=== PATIENT | female | born 1940 | race Caucasian/White ===

== ENCOUNTER 2017-12-19 14:07 | Emergency (ER) | payer MEDICARE, SELFPAY ==
[2017-12-19 14:08] VITALS: BP 129/58; PULSE 65; RESP 13; TEMP 36.6; O2SAT 94; BMI 35.1
--- NOTE | 2017-12-19 14:17 | EKG12_ITS ---
Test Reason : CP Blood Pressure : / mmHG Vent. Rate : 065 BPM Atrial Rate : 065 BPM P-R Int : 210 ms QRS Dur : 148 ms QT Int : 482 ms P-R-T Axes : 040 -44 100 degrees QTc Int : 501 ms Sinus rhythm with 1st degree A-V block Left axis deviation Left bundle branch block Abnormal ECG Confirmed by LATA TANG, JULIENNE ([id number]), senior editor EDITH CALVERT ([id number]) on 12/24/2017 2:23:09 PM Referred By: INDER Confirmed By:JULIENNE GUIDO MD
--- NOTE | 2017-12-19 14:26 | RAD_ITS ---
STUDY: X-RAY CHEST REASON FOR EXAM: Female, 77 years old. Chest pain TECHNIQUE: Portable chest COMPARISON: 10/19/2015 FINDINGS: In the left midlung along the midclavicular line there is an apparent 5.4 mm nodule. This nodule was not visible on prior imaging of 10/19/2015. It is nonspecific. The lungs are otherwise clear, symmetrically and normally inflated. Normal cardiomediastinal silhouette, ahmet and pleural margins. No acute osseous or upper abdominal process. RAD/Chest 1 View (Portable) IMPRESSION: No acute cardio coronary process. Suspected small left midlung pulmonary nodule is nonspecific. It was not apparent on prior x-ray imaging of 10/19/2015. It was also not apparent on prior CT imaging of 06/29/2015. This could represent summation artifact. Correlate with pulmonary risk factors. In a high risk individual with toxic pulmonary exposure such as smoking, a follow-up screening chest CT would be most appropriate. In a lower risk individual, a follow-up chest x-ray in 3-6 months would be appropriate. Electronically Signed: Mateo Puente, at 14:43 EDT Tel , Service support ,
[2017-12-19 14:32] VITALS: O2SAT 94
[2017-12-19 14:35] LABS: Absolute Lymphocyte Count 0.66 X10^3/ul (0.83-4.51); Absolute Neutrophil Count 2.7 X10^3/uL (2.0-7.7); Basophil# 0.01 X10^3/uL; Basophil% 0.3 % (0-1); Eosinophil# 0.08 X10^3/uL; Eosinophils% 2.1 % (0-5); Hematocrit 37.5 % (37-47); Hemoglobin 12.4 g/dl (12.0-15.0); Lymphocyte # 0.66 X10^3/ul (4.0); Lymphocyte % 17.3 % (19-41); Mean Corp Hgb Conc 33.1 g/gl (32-36); Mean Corpuscular Hgb 30.3 pg (27.0-32.0); Mean Corpuscular Volume 91.7 fL (81-99); Mean Platelet Vol. 10.6 fl (6.2-12.0); Monocyte# 0.35 X10^3/uL; Monocyte% 9.2 % (0-10); Neutrophil # 2.71 X10^3/uL (2.7-7.7); Neutrophil % 70.8 % (47-70); Platelet Count 165 K/mm3 (150-450); RBC Distribution Width CV 14.6 % (11.6-14.6); RBC Distribution Width SD 46.9 fl (35.1-43.9); Red Blood Count 4.09 M/mm3 (4.2-5.4); White Blood Count 3.8 K/mm3 (4.4-11.0)
[2017-12-19 14:36] LABS: POSITIVE COUNT NO; POSITIVE DIFFERENTIAL NO; POSITIVE MORPHOLOGY NO
[2017-12-19 14:51] LABS: Anion Gap 7 (5-15); BUN 23 mg/dL (7-18); BUN/Creat Ratio 21.1 RATIO (10-20); Calcium,Total 8.5 mg/dL (8.5-10.1); Chloride 106 mmol/L (98-107); Creatinine, Serum 1.09 mg/dL (0.55-1.02); EST Glomerular Filtration Rate 52 mL/min (>60); Est Glom Filt Rate - Afr Amer 62 mL/min (>60); Estimated Creatinine Clearance 39.82 ml/min; Glucose 126 mg/dL (74-106); Potassium 4.5 mmol/L (3.5-5.1); Sodium Level 141 mmol/L (136-145)
[2017-12-19 15:07] VITALS: BP 107/57; PULSE 57; RESP 16; O2SAT 98
--- NOTE | 2017-12-19 15:24 | ED.VISSUMM ---
- ER Visit Summary Date of Service: 12/19/17 Chief Complaint: Lower chest upper abdominal pain after eating lunch today. History of Present Illness: The patient is a 77 F prior history of coronary disease with one cardiac stent. 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 She and her friend were eating lunch shortly after she had lunch she said she felt really full. She will not describe this as chest pain. It was not associated with exertion. She states like I was stuffed. She denies any dyspnea. She denies any fever. She denies any nausea, vomiting and diarrhea. No diaphoresis. She has had no recent exertional symptoms. Currently her symptoms have resolved. She is feeling better. Physical Examination: Older female no acute distress. Vital signs are stable afebrile. Pulse ox 94% on room air no signs of hypoxia. H EENT exam unremarkable. Neck nontender no JVD no lymphadenopathy. Lungs clear to auscultation bilaterally. Heart regular rate and rhythm no murmur. Abdomen is soft, nontender, nondistended, normal bowel sounds. No peritoneal signs. No hernias or masses. No pulsatile mass. Both the right upper and right lower quadrant are nontender. No signs of obstruction. Moving all 4 extremities. Calves nontender without edema or cords. Neurologically she is awake alert with no focal motor deficits. Back exam is nontender. Test Results: CBC normal. White count of 3. Chemistries normal. Normal creatinine and gap. Troponin normal. Chest x-ray shows no acute abnormality. There is a questionable left midlung nodule. I did discuss his vocation and she will need follow-up in several months with a repeat chest x-ray. EKG is sinus rhythm rate 65 with a left bundle branch block. No signs of acute OH or ischemia. Emergency Department Course and Treatment: Repeat exam 1520 patient is doing well. She is completely symptom-free. Her abdomen is completely benign. And again she has had no recent exertional chest pains nor dyspnea. She is more than comfortable being discharged home. Treatment Plan: Discharged to home and follow-up with primary care physician. Disposition: Discharge Impression: Upper abdominal and lower chest pain of uncertain etiology. This note was generated with [employer] software. It may contain incorrect words, spelling, and punctuation that were not noted in review of the chart prior to signing ED Disposition - Plan for ED Patient: Chief Complaint: Chest Pain Referrals: Yecenia Yost MD [Primary Care Provider] -
--- NOTE | 2017-12-19 15:30 | ED.DEP ---
ED Disposition - Plan for ED Patient: Disposition: Home or Assisted Living Chief Complaint: Chest Pain Instructions: ED Chest Pain Atypical Unkn Cause Referrals: Yecenia Yost MD [Primary Care Provider] - As soon as possible Additional Instructions: Your labs were unremarkable today. I suspect is secondary to eating lunch and irritation on her stomach which is since resolved. It does not seem to be related to your heart anyway at this time. Call and follow-up your primary care physician. As we discussed there is an incidental finding in your left lung which is probably a benign process but you should get a repeat chest x-ray in about 2 months for repeat evaluation.
[2017-12-19 15:54] VITALS: BP 114/57; PULSE 59; RESP 15; O2SAT 95
--- NOTE | 2017-12-19 15:55 | ED.RN ---
REVIEWED D/C INSTRUCTIONS, FOLLOW UP CARE, AND S/S THAT WOULD WARRANT A RETURN TO THE ED WITH PT. PT VERBALIZED AN UNDERSTANDING AND DENIES FURTHER QUESTIONS FOR THIS RN. PT SKIN P/W/D, RESP EVEN AND UNLABORED, PT A&O X 3, NO DISTRESS NOTED. PT AMBULATED OUT OF ED, GAIT STEADY.
== END 2017-12-19 15:57 | disposition home or self-care (01) ==
PROVIDERS: Emergency Provider Emergency Medicine; Family Provider Family Medicine; PCP Family Medicine
DX: R07.9 Chest pain, unspecified (principal); R10.10 Upper abdominal pain, unspecified; I25.10 Atherosclerotic heart disease of native coronary artery without angina pectoris; I10 Essential (primary) hypertension; E78.00 Pure hypercholesterolemia, unspecified; Z95.5 Presence of coronary angioplasty implant and graft; Z79.899 Other long term (current) drug therapy
CPT/HCPCS: 71045; 80048; 84484; 85025; 93005; 99285; J7030; A4216

== ENCOUNTER → 2019-11-30 09:36 | Outpatient (CLI) | payer MEDICARE, SELFPAY ==
[2019-11-17 09:38] VITALS: BMI 34.8
[2019-11-30 10:56] LABS: AST(SGOT) 16 U/L (15-37); Alanine Aminotransfer ALT/SGPT 16 U/L (13-56); Albumin, Serum 3.7 g/dL (3.2-5.0); Alkaline Phosphatase 74 U/L (45-117); Bilirubin, Direct 0.18 mg/dL (0.00-0.30); Cholesterol 184 mg/dL (200); Globulin 3.2 g/dL (2.2-4.2); High Density Lipoprotein 73 mg/dL; Protein, Total 6.9 g/dL (6.4-8.2); Triglycerides 181 mg/dL; Very Low Density Lipoprotein 36 mg/dL (5-40)
== END ==
PROVIDERS: PCP Internal Medicine; Referring Provider Internal Medicine Cardiovascular Disease; Visit Provider Internal Medicine Cardiovascular Disease
DX: E78.5 Hyperlipidemia, unspecified (principal); I25.10 Atherosclerotic heart disease of native coronary artery without angina pectoris
CPT/HCPCS: 36415; 80061; 80076